=== PATIENT | female | born 1965 | race Caucasian/White ===

== ENCOUNTER 2017-01-12 14:30 | Inpatient (IN) | payer BC ==
[~2017-01-12] VITALS: Ht 165.1 cm; Wt 98.6 kg
--- NOTE | 2017-01-12 16:13 | HP ---
Date/Time of Note Date/Time of Note DATE: 01/12/17 TIME: 16:13 Assessment/Plan VTE Prophylaxis VTE Prophylaxis Intervention: SCD's Assessment/Plan Assessment/Plan 51 yo F with no known pmhx presents with 6 mos of progressive SOB. Work up at OSH ER notable for pulmonary congestion and elevated pro BNP suggestive of acute v acute on chronic systolic HF. PLAN -TTE -high dose lasix strict Is/Os and daily weights weight documented at OSH 260. Pt states her weight is closer to 213 and has not changed recently -check TSH -consider cardiology consult pending results of above for possible ischemia eval cardiac diet DVT prophx HPI/ROS Admit Date/Time Admit Date/Time Jan 12, 2017 at 15:57 Hx of Present Illness CC progressive SOB x 6 mos HPI 51 yo F with no known pmhx presented to OSH ([facility]) ER with c/o progressive BEARDEN/SOB x 6 mos .Pt states symptoms started in June, presented to [facility] ER after a vacation with SOB. Was told she had bronchitis and rx' ed abx and inhaler. BEARDEN/SOB however progressed. Pt requiring more and more pillows to prop herself up in order to sleep, also went from being able bodied to not being able to walk more than a few steps without getting SOB. +occ L sided chest discomfort when she lays on her L side. +nausea/vomiting x 2 weeks, +constipation and diarrhea x 2 weeks. +fatigue. No fevers or chills. No significant weight gain. Reports trace ankle edema. PMH/Family/Social Past Medical History home meds: ativan 0.5 mg qHS PRN insomnia Family History Significant Family History: other (no known fam hx CAD) Social History quit smoking cigarettes 6 mos ago lives in the community with her self employed Exam/Review of Systems Exam Exam nad, sitting up in bed, pleasant EOMI MMM no mrg, rrr lungs with decreased breath sounds bl bases abd soft ntnd trace ankle edema bl no rashes moves exts freely OSH studies EKG: sinus tach (106), low voltage. no gross ST segment derangement DDimer 1.27 CT Angio: no PE, +bl groundglass Abd US: gallbladder nl, 1.5 cm echogenic focus in post seg R liver lobe, likely hemangioma CXR with pulm congestion 6.4>14.6/44.3<127 INR 1.1 Trop neg hcg neg Na 139, K 4,3 gluc 103 Cr 0.7 LDL 105, HDL 35 proBNP 3030 albumin 4.2 UA: no protein Medications Medications Current Medications Ondansetron HCl (Zofran Tab) 4 mg Q6H PRN PO NAUSEA AND/OR VOMITING; Start at 16:30; Status UNV Ondansetron HCl (Zofran Inj) 4 mg Q6H PRN IV NAUSEA AND/OR VOMITING; Start at 16:30; Status UNV Furosemide (Lasix) 40 mg BID IV ; Start 01/12/17 at 21:00; Status UNV Acetaminophen (Tylenol Tab) 650 mg Q6H PRN PO PAIN LEVEL 1-3 OR FEVER; Start at 16:30; Status UNV Acetaminophen/ Hydrocodone Bitart ([place] (5/325)) 1 tab Q6H PRN PO PAIN LEVEL 4 -6; Start 01/12/17 at 16:30; Status UNV Morphine Sulfate (morphine) 2 mg Q4H PRN IV PAIN LEVEL 7-10; Start 01/12/17 at 16:30; Status UNV Docusate Sodium (Colace) 100 mg Q12H PRN PO CONSTIPATION; Start 01/12/17 at 16: 30; Status UNV Magnesium Hydroxide (Milk Of Mag) 30 ml DAILY PRN PO CONSTIPATION; Start at 16:30; Status UNV Bisacodyl (Dulcolax) 5 mg DAILY PRN PO CONSTIPATION; Start 01/12/17 at 16:30; Status UNV Enoxaparin Sodium (Lovenox) 40 mg DAILY SC ; Start 01/13/17 at 09:00; Status UNV CHITO PRICE MD Jan 12, 2017 16:13
[2017-01-12 16:30] VITALS: BP 125/94; PULSE 110; RESP 20
[2017-01-12] MEDS ORDERED: MAGNESIUM HYDROXIDE 30ML CUP PO PRN (16:30)
[2017-01-12] MEDS ORDERED: ONDANSETRON 4 MG INJ IV PRN (16:30)
[2017-01-12] MEDS ORDERED: ONDANSETRON 4 MG TAB PO PRN (16:30)
[2017-01-12] MEDS ORDERED: ACETAMINOPHEN 325 MG TAB PO PRN (16:30)
[2017-01-12] MEDS ORDERED: morphine 2 MG INJ IV PRN (16:30)
[2017-01-12] MEDS ORDERED: BISACODYL (EC) 5 MG TAB PO PRN (16:30)
[2017-01-12] MEDS ORDERED: NACL 0.9% 3 ML SYG IV SCH (16:30)
[2017-01-12] MEDS ORDERED: DOCUSATE SODIUM 100 MG CAP PO PRN (16:30)
[2017-01-12] MEDS ORDERED: HYDROCODONE/APAP (5/325) TAB PO PRN (16:30)
[2017-01-12 16:31] VITALS: PULSE 110
[2017-01-12 17:00] VITALS: Ht 165.1 cm; Wt 98.6 kg
[2017-01-12 18:46] VITALS: BP 130/76; PULSE 109
[2017-01-12] MEDS: FUROSEMIDE 40 MG INJ IV SCH (18:47)
[2017-01-12] MEDS: ALBUTEROL/IPRATROPIUM (NEB) 3 ML AMP HHN PRN ×2 (19:12→23:36)
[2017-01-12 20:07] VITALS: PULSE 100
[2017-01-12 20:15] VITALS: BP 123/84; RESP 20
[2017-01-13] VITALS (12 sets, daily range): BP systolic 101–124; BP diastolic 58–82; PULSE 90–103; RESP 17–20
[2017-01-13] MEDS: ALBUTEROL/IPRATROPIUM (NEB) 3 ML AMP HHN PRN ×2 (04:57→10:41)
[2017-01-13] MEDS: FUROSEMIDE 40 MG INJ IV SCH ×2 (06:07→18:33)
[2017-01-13 08:36] LABS: CALCIUM 10.1 mg/dl (8.4-10.2); CREATININE 0.79 mg/dl (0.44-1.00); MAGNESIUM 1.6 mg/dl (1.7-2.5); POTASSIUM 3.7 mmol/L (3.5-5.1)
[2017-01-13] MEDS: MAGNESIUM OXIDE 400 MG TAB PO SCH (09:32)
[2017-01-13 09:40] LABS: THYROID STIMULATING HORMONE 3.6 MIU/L (0.465-4.680)
[2017-01-13] MEDS: ENOXAPARIN 40 MG/0.4 ML SYG SC SCH (10:55)
--- NOTE | 2017-01-13 13:58 | PN ---
Date/Time of Note Date/Time of Note DATE: 01/13/17 TIME: 13:57 Assessment/Plan VTE Prophylaxis VTE Prophylaxis Intervention: SCD's Lines/Catheters IV Catheter Type (from Nrsg): Saline Lock Assessment/Plan Assessment/Plan 51 yo F with no known pmhx presents with 6 mos of progressive SOB. Work up at OSH ER notable for pulmonary congestion and elevated pro BNP suggestive of acute v acute on chronic systolic HF. PLAN -TTE result pending -high dose lasix strict Is/Os and daily weights Pt states her weight is closer to 213, documented here at 217# this morning -TSH nl -consider cardiology consult pending results of above for possible ischemia eval cardiac diet DVT prophx Subjective 24 Hr Interval Summary Free Text/Dictation Breathing and edema little better. TTE appears to have been performed but read pending Exam/Review of Systems Vital Signs Vitals Vital Signs Date Time Temp Pulse Resp B/P Pulse Ox O2 Delivery O2 Flow Rate FiO2 01/13/17 12:16 97 01/13/17 11:22 98.3 18 113/59 96 01/13/17 10:41 2.0 28 01/13/17 10:41 Nasal Cannula Intake and Output 01/12/17 01/12/17 01/13/17 15:00 23:00 07:00 Intake Total 200 ml Balance 200 ml Exam nad, no mrg lungs still with decrease BS at bl bases but improved from yesterday no mrg abd soft LE edema improved TTE result pending Results Result Diagram: 01/13/17 0724 Results 24 hrs Laboratory Tests Test 01/13/17 07:24 Sodium Level 144 Potassium Level 3.7 Chloride Level 100 Carbon Dioxide Level 26 Anion Gap 22 H Blood Urea Nitrogen 16 Creatinine 0.79 Glucose Level 103 Hemoglobin A1c 5.8 Calcium Level 10.1 Phosphorus Level 6.0 H Magnesium Level 1.6 L Thyroid Stimulating Hormone (TSH) 3.600 Medications Medications Current Medications Ondansetron HCl (Zofran Tab) 4 mg Q6H PRN PO NAUSEA AND/OR VOMITING; Start at 16:30 Ondansetron HCl (Zofran Inj) 4 mg Q6H PRN IV NAUSEA AND/OR VOMITING; Start at 16:30 Acetaminophen (Tylenol Tab) 650 mg Q6H PRN PO PAIN LEVEL 1-3 OR FEVER Last administered on 01/13/17 09:33; Admin Dose 650 MG; Start 01/12/17 at 16:30 Acetaminophen/ Hydrocodone Bitart ([place] (5/325)) 1 tab Q6H PRN PO PAIN LEVEL 4 -6; Start 01/12/17 at 16:30 Morphine Sulfate (morphine) 2 mg Q4H PRN IV PAIN LEVEL 7-10; Start 01/12/17 at 16:30 Docusate Sodium (Colace) 100 mg Q12H PRN PO CONSTIPATION; Start 01/12/17 at 16: 30 Magnesium Hydroxide (Milk Of Mag) 30 ml DAILY PRN PO CONSTIPATION; Start at 16:30 Bisacodyl (Dulcolax) 5 mg DAILY PRN PO CONSTIPATION; Start 01/12/17 at 16:30 Enoxaparin Sodium (Lovenox) 40 mg DAILY SC Last administered on 01/13/17 10:55 ; Admin Dose 40 MG; Start 01/13/17 at 09:00 Magnesium Oxide (Mag-Ox 400) 400 mg DAILY PO Last administered on 01/13/17 09: 32; Admin Dose 400 MG; Start 01/13/17 at 09:00 CHITO PRICE MD Jan 13, 2017 13:58
--- NOTE | 2017-01-13 14:45 | RADRPT ---
Echocardiogram Report Patient Name: LEA SAMANIEGO Gender: Female Date: 1965 Study Date: 13-Jan-2017 Adolescent Specialist: [facility] Location: [address] Ref. Physician: CHITO PRICE Quality: Adequate Procedures: Transthoracic echocardiogram with complete 2D, M-Mode, and doppler examination. Indications: New diagnosis CHF. 2D/M Mode Doppler Measurement Value Normal Ranges Measurement Value Normal Ranges LVIDd 2D 5.8 3.5 - 5.6 cm AV Peak Hitesh 1.3 m/sec LVIDs 2D 5.4 2.1 - 4.1 cm AV Peak PG 7.0 mmHg FS 2D 8.2 % LVOT Peak Hitseh 0.9 m/sec LVPWd 2D 0.9 0.6 - 1.1 cm LVOT Peak PG 3.0 mmHg IVSd 2D 0.9 0.6 - 1.1 cm MV E Peak Hitesh 1.1 m/sec IVS/LVPW 2D 1.0 MV Decel Time 197 msec AoR Diam 2D 3.0 2.0 - 3.7 cm TR Peak Hitesh 2.6 m/sec LA/Ao 2D 1 0 - 1 TR Peak PG 28.0 mmHg EDV 2D 200.0 cm3 RVSP 36.0 mmHg ESV 2D 155.0 cm3 LA Dimen 2D 4.1 2.3 - 4.0 cm Findings Left Ventricle: Normal left ventricular wall thickness. Moderate enlargement of left ventricle cavity. Severe left ventricular systolic dysfunction. Ejection fraction is visually estimated at 20 %. Abnormal Diastolic Function. Right Ventricle: Normal right ventricular size. Normal right ventricular systolic function. Left Atrium: There is moderate enlargement of left atrium. Right Atrium: There is moderate enlargement of right atrium. Mitral Valve: Mild mitral leaflet calcification. Mild mitral annular calcification. Trace mitral regurgitation. Aortic Valve: Normal appearance of the aortic valve. No significant aortic stenosis or insufficiency. Tricuspid Valve: Normal appearance of the tricuspid valve. Estimated peak PA systolic pressure 36 mmHg. There is mild tricuspid regurgitation. Pulmonic Valve: Pulmonic valve not well visualized. There is trace pulmonic regurgitation. Pericardium: Normal pericardium with no significant pericardial effusion. Aorta: Normal aortic root. IVC: Dilated IVC with respiratory collapse consistent with elevated right atrial pressure. Conclusions 1.Normal left ventricular wall thickness. Moderate enlargement of left ventricle cavity. Severe left ventricular systolic dysfunction. Ejection fraction is visually estimated at 20 %. Abnormal Diastolic Function. 2.Normal right ventricular size. Normal right ventricular systolic function. 3.There is moderate enlargement of left atrium. 4.There is moderate enlargement of right atrium. 5.Trace mitral regurgitation. 6.No significant aortic stenosis or insufficiency. 7.Estimated peak PA systolic pressure 36 mmHg. There is mild tricuspid regurgitation. 8.Normal pericardium with no significant pericardial effusion. Electronically Signed By: Mendez Schaeffer 13-Jan-2017 14:44:37 -0700 Patient Name: LEA SAMANIEGO Study Date: 13-Jan-2017 [id number]
--- NOTE | 2017-01-13 18:33 | CONS ---
Date/Time of Note Date/Time of Note DATE: 01/13/17 TIME: 18:22 Assessment/Plan Assessment/Plan Additional Assessment/Plan Acute decompensated systolic congestive heart failure Cardiomyopathy with ejection fraction 20% -Patient with newly diagnosed cardiomyopathy, currently with acute decompensated systolic congestive heart failure. In discussion with patient and , patient with recent travel to [place] in June 2016, upon return, severe illness with fevers and chills, myalgias and GI symptoms. Since then, progressive worsening shortness of breath, chest discomfort and lower extremity edema. Would continue IV diuretic therapy as blood pressure renal function permits, would start TAYLA inhibitor at the current time and uptitrate as blood pressure and renal function permits, will plan to start Coreg in the next 24 hours. Maintain potassium above 4.0 and magnesium above 2.0. Will need ischemic workup in the future. Extensive discussion had with the patient and at bedside regarding diagnosis and plan of care. Consultation Date/Type/Reason Admit Date/Time Jan 12, 2017 at 15:57 Type of Consultation: cv Reason for Consultation Shortness of breath Hx of Present Illness This is a 51-year-old female with no significant past medical history who presents with worsening shortness of breath and lower extremity edema and chest pressure. Symptoms have been worsening over the past few weeks. Patient with symptoms of paroxysmal nocturnal dyspnea, dyspnea with exertion. Chest pressure is intermittent. Patient recently took a trip to [place] in June 2016. When she came back, she tells me she got "very sick". She was having fevers and chills associated with abdominal pain, nausea vomiting and diarrhea. She was put on an antibiotic with improvement in her abdominal symptoms but continued to have her other symptoms. Since then, she has had multiple episodes of shortness of breath, lower extremity edema and chest pressure. She was tried on inhalers with no significant improvement. Given worsening symptoms over the past few days, she went to the emergency room for evaluation and care. Because of insurance reasons, she was transferred to our facility for further evaluation and care. Since starting her on IV Lasix, her symptoms shortness of breath have improved significantly and she has no further chest pressure. Lower extremity edema has also improved. 12 point review of systems was performed with all pertinent positives and negatives mentioned above and all else is negative Past Medical History Medical History: no pertinent history Family History Significant Family History: no pertinent family hx Social History Alcohol Use: other (Drinks heavily at times on the weekends) Smoking Status: Current some day smoker Drug Use: none Other Social History Currently not working Exam/Review of Systems Vital Signs Vitals Vital Signs Date Time Temp Pulse Resp B/P Pulse Ox O2 Delivery O2 Flow Rate FiO2 01/13/17 17:59 2.0 28 01/13/17 16:28 103 01/13/17 15:12 97.5 17 101/62 95 01/13/17 10:41 Nasal Cannula Intake and Output 01/12/17 01/12/17 01/13/17 15:00 23:00 07:00 Intake Total 200 ml Balance 200 ml Exam No apparent distress, no dyspnea with speaking Constitutional: alert, obese, oriented Head: normocephalic Neck: supple Respiratory: other (Coarse breath sounds bilaterally, no wheezing) Cardiovascular: other (S1-S2 heard), regular rate and rhythm, systolic murmur Gastrointestinal: bowel sounds, non-tender, soft Extremities: edema Results Result Diagram: 01/13/17 0724 Results 24 hrs Laboratory Tests Test 01/13/17 07:24 Sodium Level 144 Potassium Level 3.7 Chloride Level 100 Carbon Dioxide Level 26 Anion Gap 22 H Blood Urea Nitrogen 16 Creatinine 0.79 Glucose Level 103 Hemoglobin A1c 5.8 Calcium Level 10.1 Phosphorus Level 6.0 H Magnesium Level 1.6 L Thyroid Stimulating Hormone (TSH) 3.600 Medications Medications Current Medications Ondansetron HCl (Zofran Tab) 4 mg Q6H PRN PO NAUSEA AND/OR VOMITING; Start at 16:30 Ondansetron HCl (Zofran Inj) 4 mg Q6H PRN IV NAUSEA AND/OR VOMITING; Start at 16:30 Acetaminophen (Tylenol Tab) 650 mg Q6H PRN PO PAIN LEVEL 1-3 OR FEVER Last administered on 01/13/17t 09:33; Admin Dose 650 MG; Start 01/12/17 at 16:30 Acetaminophen/ Hydrocodone Bitart ([place] (5/325)) 1 tab Q6H PRN PO PAIN LEVEL 4 -6; Start 01/12/17 at 16:30 Morphine Sulfate (morphine) 2 mg Q4H PRN IV PAIN LEVEL 7-10; Start 01/12/17 at 16:30 Docusate Sodium (Colace) 100 mg Q12H PRN PO CONSTIPATION; Start 01/12/17 at 16: 30 Magnesium Hydroxide (Milk Of Mag) 30 ml DAILY PRN PO CONSTIPATION; Start at 16:30 Bisacodyl (Dulcolax) 5 mg DAILY PRN PO CONSTIPATION; Start 01/12/17 at 16:30 Enoxaparin Sodium (Lovenox) 40 mg DAILY SC Last administered on 01/13/17 10:55 ; Admin Dose 40 MG; Start 01/13/17 at 09:00 Magnesium Oxide (Mag-Ox 400) 400 mg DAILY PO Last administered on 01/13/17 09: 32; Admin Dose 400 MG; Start 01/13/17 at 09:00 Lisinopril 2.5 mg 2.5 mg BID PO ; Start 01/13/17 at 21:00 Magnesium Sulfate/ Sodium Chloride (Magnesium Sulfate/NS) 106 ml @ 35.333 mls/ hr ONCE ONCE IVPB ; Start 01/13/17 at 20:00; Stop 01/13/17 at 22:59 Procedures Procedures ECG from outside facility done 01/12/2017 demonstrates sinus tachycardia at 106 bpm, QRS 82 ms, nonspecific STT wave abnormalities Mendez Schaeffer DO Jan 13, 2017 18:32
[2017-01-13] MEDS ORDERED: ALPRAZOLAM 0.25 MG TAB PO PRN (19:00)
[2017-01-13 19:42] LABS: CREATINE KINASE 27 IU/L (23-200)
[2017-01-13] MEDS ORDERED: MAGNESIUM SULFATE 3 GM in SOD CHLORIDE 0.9% 100 ML IVPB ONE (20:00)
[2017-01-13 20:09] LABS: TROPONIN-I < 0.012 ng/ml (0.00-0.12)
[2017-01-13] MEDS: LISINOPRIL 5 MG TAB PO SCH (21:21)
[2017-01-14] VITALS (12 sets, daily range): BP systolic 119–128; BP diastolic 60–75; PULSE 85–113; RESP 18–20
[2017-01-14] MEDS: FUROSEMIDE 40 MG INJ IV SCH ×2 (06:34→17:15)
[2017-01-14 08:01] LABS: BASOPHIL # 0.1 10^3/ul (0.0-0.1); BASOPHILS % 0.7 % (0.0-2.0); EOSINOPHILS # 0.6 10^3/ul (0.0-0.5); HEMATOCRIT 50.4 % (37.0-47.0); HEMOGLOBIN 16.4 g/dl (12.0-16.0); LYMPHOCYTES # 1.5 10^3/ul (0.8-2.9); LYMPHOCYTES % 20.7 % (15.0-51.0); MEAN CORPUSCULAR HEMOGLOBIN 30.4 pg (29.0-33.0); MEAN CORPUSCULAR HGB CONC 32.5 g/dl (32.0-37.0); MEAN CORPUSCULAR VOLUME 93.5 fl (82.0-101.0); MONOCYTE # 0.5 10^3/ul (0.3-0.9); MONOCYTES % 7.5 % (0.0-11.0); NEUTROPHIL # 4.4 10^3/ul (1.6-7.5); NEUTROPHILS % 62.7 % (39.0-77.0); PLATELET COUNT 222 10^3/UL (140-415); RED BLOOD COUNT 5.39 10^6/ul (4.20-5.40); RED CELL DISTRIBUTION WIDTH 14.5 % (11.5-14.5); WHITE BLOOD COUNT 7.1 10^3/ul (4.8-10.8)
[2017-01-14 08:52] LABS: CALCIUM 10.7 mg/dl (8.4-10.2); CREATININE 0.85 mg/dl (0.44-1.00); POTASSIUM 4.5 mmol/L (3.5-5.1)
[2017-01-14] MEDS: MAGNESIUM OXIDE 400 MG TAB PO SCH (09:34)
[2017-01-14] MEDS: LISINOPRIL 5 MG TAB PO SCH ×2 (09:34→21:14)
[2017-01-14] MEDS: ASPIRIN 81 MG TAB PO SCH (09:34)
[2017-01-14] MEDS: ENOXAPARIN 40 MG/0.4 ML SYG SC SCH (09:45)
--- NOTE | 2017-01-14 16:08 | CONS ---
Date/Time of Note Date/Time of Note DATE: 01/14/17 TIME: 16:04 Assessment/Plan Assessment/Plan Additional Assessment/Plan Acute decompensated systolic congestive heart failure Cardiomyopathy with ejection fraction 20% -Patient tolerating diuretics, would plan on switching to p.o. the next 24 hours. Would start Coreg in the next 24 hours, uptitrate TAYLA inhibitor and Coreg as blood pressure and renal function permits. Maintain potassium above 4.0 and magnesium above 2.0. Consultation Date/Type/Reason Admit Date/Time Jan 12, 2017 at 15:57 Initial Consult Date Type of Consultation: cv 24 HR Interval Summary Free Text/Dictation Shortness of breath continues to improve with increase exercise capacity with no chest discomfort. Denies dizziness. Exam/Review of Systems Vital Signs Vitals Vital Signs Date Time Temp Pulse Resp B/P Pulse Ox O2 Delivery O2 Flow Rate FiO2 01/14/17 15:54 98.2 79 19 128/69 97 01/13/17 23:06 2.0 01/13/17 17:59 28 01/13/17 10:41 Nasal Cannula Intake and Output 01/13/17 01/13/17 01/14/17 15:00 23:00 07:00 Intake Total 850 ml 586 ml Balance 850 ml 586 ml Exam No apparent distress, no dyspnea with speaking Constitutional: alert, obese, oriented Head: normocephalic Neck: supple Respiratory: other (Coarse breath sounds bilaterally, no wheezing) Cardiovascular: other (S1-S2 heard), regular rate and rhythm Gastrointestinal: bowel sounds, non-tender, other (No guarding), soft Extremities: edema Results Result Diagram: 01/14/17 0712 01/14/17 0712 Results 24 hrs Laboratory Tests Test 01/13/17 19:04 01/14/17 07:12 Creatine Kinase 27 Creatine Kinase Index 1.5 Creatinine Kinase MB (Mass) 0.40 Troponin I < 0.012 White Blood Count 7.1 Red Blood Count 5.39 Hemoglobin 16.4 H Hematocrit 50.4 H Mean Corpuscular Volume 93.5 Mean Corpuscular Hemoglobin 30.4 Mean Corpuscular Hemoglobin Concent 32.5 Red Cell Distribution Width 14.5 Platelet Count 222 Mean Platelet Volume 11.0 H Neutrophils % 62.7 Lymphocytes % 20.7 Monocytes % 7.5 Eosinophils % 8.0 H Basophils % 0.7 Nucleated Red Blood Cells % 0.0 Neutrophils # 4.4 Lymphocytes # 1.5 Monocytes # 0.5 Eosinophils # 0.6 H Basophils # 0.1 Nucleated Red Blood Cells # 0.0 Sodium Level 145 H Potassium Level 4.5 Chloride Level 96 L Carbon Dioxide Level 29 Anion Gap 25 H Blood Urea Nitrogen 16 Creatinine 0.85 Glucose Level 103 Calcium Level 10.7 H Magnesium Level 2.4 Medications Medications Current Medications Ondansetron HCl (Zofran Tab) 4 mg Q6H PRN PO NAUSEA AND/OR VOMITING; Start at 16:30 Ondansetron HCl (Zofran Inj) 4 mg Q6H PRN IV NAUSEA AND/OR VOMITING; Start at 16:30 Acetaminophen (Tylenol Tab) 650 mg Q6H PRN PO PAIN LEVEL 1-3 OR FEVER Last administered on 01/13/17 09:33; Admin Dose 650 MG; Start 01/12/17 at 16:30 Acetaminophen/ Hydrocodone Bitart ([place] (5/325)) 1 tab Q6H PRN PO PAIN LEVEL 4 -6; Start 01/12/17 at 16:30 Morphine Sulfate (morphine) 2 mg Q4H PRN IV PAIN LEVEL 7-10; Start 01/12/17 at 16:30 Docusate Sodium (Colace) 100 mg Q12H PRN PO CONSTIPATION; Start 01/12/17 at 16: 30 Magnesium Hydroxide (Milk Of Mag) 30 ml DAILY PRN PO CONSTIPATION; Start at 16:30 Bisacodyl (Dulcolax) 5 mg DAILY PRN PO CONSTIPATION; Start 01/12/17 at 16:30 Enoxaparin Sodium (Lovenox) 40 mg DAILY SC Last administered on 01/14/17 09:45 ; Admin Dose 40 MG; Start 01/13/17 at 09:00 Magnesium Oxide (Mag-Ox 400) 400 mg DAILY PO Last administered on 01/14/17 09: 34; Admin Dose 400 MG; Start 01/13/17 at 09:00 Lisinopril (Zestril) 2.5 mg BID PO Last administered on 01/14/17 09:34; Admin Dose 2.5 MG; Start 01/13/17 at 21:00 Aspirin (Aspirin) 81 mg DAILY PO Last administered on 7/27/17at 09:34; Admin Dose 81 MG; Start 01/14/17 at 09:00 Alprazolam (Xanax) 0.25 mg Q6H PRN PO ANXIETY; Start 01/13/17 at 19:00 Mendez Schaeffer DO Jan 14, 2017 16:08
--- NOTE | 2017-01-14 18:03 | PN ---
Date/Time of Note Date/Time of Note DATE: 01/14/17 TIME: 18:02 Assessment/Plan VTE Prophylaxis VTE Prophylaxis Intervention: SCD's Lines/Catheters IV Catheter Type (from Nrs): Saline Lock Assessment/Plan Assessment/Plan 51 yo F with no known pmhx presents with 6 mos of progressive SOB. TTE here with EF<20%. PLAN -Cardiology following. cont lasix and starting acei/bb as per cardiology -cardiology pondering ischemia eval -RD consult for new CHF lifestyle diet cardiac diet DVT prophx Subjective 24 Hr Interval Summary Free Text/Dictation Pt with lots of questions on behalf of herself and her son regarding the fci prognosis of her newly diagnosed HF states breathing SIGNIFICANTLY improved from admission Exam/Review of Systems Vital Signs Vitals Vital Signs Date Time Temp Pulse Resp B/P Pulse Ox O2 Delivery O2 Flow Rate FiO2 01/14/17 16:15 113 01/14/17 15:54 98.2 19 128/69 97 01/13/17 23:06 2.0 01/13/17 17:59 28 01/13/17 10:41 Nasal Cannula Intake and Output 01/13/17 01/13/17 01/14/17 15:00 23:00 07:00 Intake Total 850 ml 586 ml Balance 850 ml 586 ml Exam nad, sitting up in bed rrr no mrg lungs with bb crackles no mrg pedal edema improved Results Result Diagram: 01/14/17 0712 01/14/17 0712 Results 24 hrs Laboratory Tests Test 01/13/17 19:04 01/14/17 07:12 Creatine Kinase 27 Creatine Kinase Index 1.5 Creatinine Kinase MB (Mass) 0.40 Troponin I < 0.012 White Blood Count 7.1 Red Blood Count 5.39 Hemoglobin 16.4 H Hematocrit 50.4 H Mean Corpuscular Volume 93.5 Mean Corpuscular Hemoglobin 30.4 Mean Corpuscular Hemoglobin Concent 32.5 Red Cell Distribution Width 14.5 Platelet Count 222 Mean Platelet Volume 11.0 H Neutrophils % 62.7 Lymphocytes % 20.7 Monocytes % 7.5 Eosinophils % 8.0 H Basophils % 0.7 Nucleated Red Blood Cells % 0.0 Neutrophils # 4.4 Lymphocytes # 1.5 Monocytes # 0.5 Eosinophils # 0.6 H Basophils # 0.1 Nucleated Red Blood Cells # 0.0 Sodium Level 145 H Potassium Level 4.5 Chloride Level 96 L Carbon Dioxide Level 29 Anion Gap 25 H Blood Urea Nitrogen 16 Creatinine 0.85 Glucose Level 103 Calcium Level 10.7 H Magnesium Level 2.4 Medications Medications Current Medications Ondansetron HCl (Zofran Tab) 4 mg Q6H PRN PO NAUSEA AND/OR VOMITING; Start at 16:30 Ondansetron HCl (Zofran Inj) 4 mg Q6H PRN IV NAUSEA AND/OR VOMITING; Start at 16:30 Acetaminophen (Tylenol Tab) 650 mg Q6H PRN PO PAIN LEVEL 1-3 OR FEVER Last administered on 01/13/17 09:33; Admin Dose 650 MG; Start 01/12/17 at 16:30 Acetaminophen/ Hydrocodone Bitart ([place] (5/325)) 1 tab Q6H PRN PO PAIN LEVEL 4 -6; Start 01/12/17 at 16:30 Morphine Sulfate (morphine) 2 mg Q4H PRN IV PAIN LEVEL 7-10; Start 01/12/17 at 16:30 Docusate Sodium (Colace) 100 mg Q12H PRN PO CONSTIPATION; Start 01/12/17 at 16: 30 Magnesium Hydroxide (Milk Of Mag) 30 ml DAILY PRN PO CONSTIPATION; Start at 16:30 Bisacodyl (Dulcolax) 5 mg DAILY PRN PO CONSTIPATION; Start 01/12/17 at 16:30 Enoxaparin Sodium (Lovenox) 40 mg DAILY SC Last administered on 01/14/17 09:45 ; Admin Dose 40 MG; Start 01/13/17 at 09:00 Magnesium Oxide (Mag-Ox 400) 400 mg DAILY PO Last administered on 01/14/17 09: 34; Admin Dose 400 MG; Start 01/13/17 at 09:00 Aspirin (Aspirin) 81 mg DAILY PO Last administered on 01/14/17 09:34; Admin Dose 81 MG; Start 01/14/17 at 09:00 Alprazolam (Xanax) 0.25 mg Q6H PRN PO ANXIETY Last administered on 01/14/17 17 :15; Admin Dose 0.25 MG; Start 01/13/17 at 19:00 Lisinopril (Zestril) 5 mg BID PO ; Start 01/14/17 at 21:00 Carvedilol (Coreg) 3.125 mg BID PO ; Start 01/15/17 at 06:00 CHITO PRICE MD Jan 14, 2017 18:03
[2017-01-15] VITALS (9 sets, daily range): BP systolic 95–115; BP diastolic 55–74; PULSE 94–103; RESP 18–20
[2017-01-15] MEDS ORDERED: FUROSEMIDE 40 MG TAB PO SCH (06:00)
[2017-01-15 07:55] LABS: MAGNESIUM 2.2 mg/dl (1.7-2.5); PHOSPHORUS 5.6 mg/dl (2.5-4.9)
[2017-01-15 08:31] LABS: CALCIUM 11.1 mg/dl (8.4-10.2); CREATININE 0.97 mg/dl (0.44-1.00); POTASSIUM 4.5 mmol/L (3.5-5.1)
[2017-01-15] MEDS: LISINOPRIL 5 MG TAB PO SCH (09:00)
[2017-01-15] MEDS: ASPIRIN 81 MG TAB PO SCH (09:10)
[2017-01-15] MEDS: MAGNESIUM OXIDE 400 MG TAB PO SCH (09:11)
[2017-01-15] MEDS: ENOXAPARIN 40 MG/0.4 ML SYG SC SCH (09:15)
--- NOTE | 2017-01-15 13:00 | PN ---
Date/Time of Note Date/Time of Note DATE: 01/15/17 TIME: 12:58 Assessment/Plan VTE Prophylaxis VTE Prophylaxis Intervention: SCD's Lines/Catheters IV Catheter Type (from Nrsg): Saline Lock Assessment/Plan Assessment/Plan 51 yo F with no known pmhx presents with 6 mos of progressive SOB. TTE here with EF<20%. PLAN -Cardiology following. -lasix converted to PO yesterday, cont bb at current dose -decrease acei to 2.5 mg q day given hypotension -cardiology pondering ischemia eval -RD consult for new CHF lifestyle diet Ca elevated on ChemP but when adjusted for albumin is nl (10.2) cardiac diet DVT prophx Subjective 24 Hr Interval Summary Free Text/Dictation BP a little low this AM. Exam/Review of Systems Vital Signs Vitals Vital Signs Date Time Temp Pulse Resp B/P Pulse Ox O2 Delivery O2 Flow Rate FiO2 01/15/17 12:22 100 01/15/17 11:22 98.4 20 107/64 97 01/13/17 23:06 2.0 01/13/17 17:59 28 01/13/17 10:41 Nasal Cannula Intake and Output 01/14/17 01/14/17 01/15/17 15:00 23:00 07:00 Intake Total 800 ml 480 ml Balance 800 ml 480 ml Exam nad, sitting up in bed no mrg lungs clear abd soft trace LE edema bed weights 7. 204.7# 7.27: 205# 7.26: 217# Results Result Diagram: 01/14/17 0712 01/15/17 0604 Results 24 hrs Laboratory Tests Test 01/15/17 06:04 Sodium Level 143 Potassium Level 4.5 Chloride Level 94 L Carbon Dioxide Level 30 Anion Gap 24 H Blood Urea Nitrogen 26 H Creatinine 0.97 Glucose Level 90 Calcium Level 11.1 H Phosphorus Level 5.6 H Magnesium Level 2.2 Albumin 5.1 H Medications Medications Current Medications Ondansetron HCl (Zofran Tab) 4 mg Q6H PRN PO NAUSEA AND/OR VOMITING; Start at 16:30 Ondansetron HCl (Zofran Inj) 4 mg Q6H PRN IV NAUSEA AND/OR VOMITING; Start at 16:30 Acetaminophen (Tylenol Tab) 650 mg Q6H PRN PO PAIN LEVEL 1-3 OR FEVER Last administered on 01/13/17 09:33; Admin Dose 650 MG; Start 01/12/17 at 16:30 Acetaminophen/ Hydrocodone Bitart ([employer] (5/325)) 1 tab Q6H PRN PO PAIN LEVEL 4 -6; Start 01/12/17 at 16:30 Morphine Sulfate (morphine) 2 mg Q4H PRN IV PAIN LEVEL 7-10; Start 01/12/17 at 16:30 Docusate Sodium (Colace) 100 mg Q12H PRN PO CONSTIPATION; Start 01/12/17 at 16: 30 Magnesium Hydroxide (Milk Of Mag) 30 ml DAILY PRN PO CONSTIPATION; Start at 16:30 Bisacodyl (Dulcolax) 5 mg DAILY PRN PO CONSTIPATION; Start 01/12/17 at 16:30 Enoxaparin Sodium (Lovenox) 40 mg DAILY SC Last administered on 01/15/17 09:15 ; Admin Dose 40 MG; Start 01/13/17 at 09:00 Magnesium Oxide (Mag-Ox 400) 400 mg DAILY PO Last administered on 01/15/17 09: 11; Admin Dose 400 MG; Start 01/13/17 at 09:00 Aspirin (Aspirin) 81 mg DAILY PO Last administered on 01/15/17 09:10; Admin Dose 81 MG; Start 01/14/17 at 09:00 Alprazolam (Xanax) 0.25 mg Q6H PRN PO ANXIETY Last administered on 01/14/17 17 :15; Admin Dose 0.25 MG; Start 01/13/17 at 19:00 Lisinopril (Zestril) 5 mg BID PO Last administered on 01/14/17 21:14; Admin Dose 5 MG; Start 01/14/17 at 21:00 Carvedilol (Coreg) 3.125 mg BID PO Last administered on 01/15/17 05:22; Admin Dose 3.125 MG; Start 01/15/17 at 06:00 Furosemide (Lasix) 40 mg DAILY@06 PO ; Start 01/16/17 at 06:00 CHITO PRICE MD Jan 15, 2017 13:00
--- NOTE | 2017-01-15 13:56 | CONS ---
Date/Time of Note Date/Time of Note DATE: 01/15/17 TIME: 13:53 Assessment/Plan Assessment/Plan Additional Assessment/Plan Acute decompensated systolic congestive heart failure Newly diagnosed cardiomyopathy with ejection fraction 20% -Patient with lower blood pressure this morning. Agree with decreasing dose of TAYLA inhibitor. Continue Coreg, Lasix 40 mg daily and titrate as needed, aspirin therapy. Outpatient cardiology follow-up. Consultation Date/Type/Reason Admit Date/Time Jan 12, 2017 at 15:57 Type of Consultation: cv 24 HR Interval Summary Free Text/Dictation Patient continues to feel better. Denies chest pain or dizziness and shortness of breath continues to improve. Exam/Review of Systems Vital Signs Vitals Vital Signs Date Time Temp Pulse Resp B/P Pulse Ox O2 Delivery O2 Flow Rate FiO2 01/15/17 12:22 100 01/15/17 11:22 98.4 20 107/64 97 01/13/17 23:06 2.0 01/13/17 17:59 28 01/13/17 10:41 Nasal Cannula Intake and Output 01/14/17 01/14/17 01/15/17 15:00 23:00 07:00 Intake Total 800 ml 480 ml Balance 800 ml 480 ml Exam No apparent distress Constitutional: alert, oriented Head: normocephalic Respiratory: other (Coarse breath sounds bilaterally, no wheezing) Cardiovascular: other (S1-S2 heard), regular rate and rhythm Gastrointestinal: bowel sounds, non-tender, soft Extremities: edema (Trace) Results Result Diagram: 01/14/17 0712 01/15/17 0604 Results 24 hrs Laboratory Tests Test 01/15/17 06:04 Sodium Level 143 Potassium Level 4.5 Chloride Level 94 L Carbon Dioxide Level 30 Anion Gap 24 H Blood Urea Nitrogen 26 H Creatinine 0.97 Glucose Level 90 Calcium Level 11.1 H Phosphorus Level 5.6 H Magnesium Level 2.2 Albumin 5.1 H Medications Medications Current Medications Ondansetron HCl (Zofran Tab) 4 mg Q6H PRN PO NAUSEA AND/OR VOMITING; Start at 16:30 Ondansetron HCl (Zofran Inj) 4 mg Q6H PRN IV NAUSEA AND/OR VOMITING; Start at 16:30 Acetaminophen (Tylenol Tab) 650 mg Q6H PRN PO PAIN LEVEL 1-3 OR FEVER Last administered on 01/13/17 09:33; Admin Dose 650 MG; Start 01/12/17 at 16:30 Acetaminophen/ Hydrocodone Bitart ([place] (5/325)) 1 tab Q6H PRN PO PAIN LEVEL 4 -6; Start 01/12/17 at 16:30 Morphine Sulfate (morphine) 2 mg Q4H PRN IV PAIN LEVEL 7-10; Start 01/12/17 at 16:30 Docusate Sodium (Colace) 100 mg Q12H PRN PO CONSTIPATION; Start 01/12/17 at 16: 30 Magnesium Hydroxide (Milk Of Mag) 30 ml DAILY PRN PO CONSTIPATION; Start at 16:30 Bisacodyl (Dulcolax) 5 mg DAILY PRN PO CONSTIPATION; Start 01/12/17 at 16:30 Enoxaparin Sodium (Lovenox) 40 mg DAILY SC Last administered on 01/15/17 09:15 ; Admin Dose 40 MG; Start 01/13/17 at 09:00 Magnesium Oxide (Mag-Ox 400) 400 mg DAILY PO Last administered on 01/15/17 09: 11; Admin Dose 400 MG; Start 01/13/17 at 09:00 Aspirin (Aspirin) 81 mg DAILY PO Last administered on 01/15/17 09:10; Admin Dose 81 MG; Start 01/14/17 at 09:00 Alprazolam (Xanax) 0.25 mg Q6H PRN PO ANXIETY Last administered on 01/14/17 17 :15; Admin Dose 0.25 MG; Start 01/13/17 at 19:00 Carvedilol (Coreg) 3.125 mg BID PO Last administered on 01/15/17 05:22; Admin Dose 3.125 MG; Start 01/15/17 at 06:00 Furosemide (Lasix) 40 mg DAILY@06 PO ; Start 01/16/17 at 06:00 Lisinopril (Zestril) 2.5 mg DAILY PO ; Start 01/16/17 at 09:00 Mendez Schaeffer DO Jan 15, 2017 13:56
[2017-01-15] MEDS ORDERED: FURO40TA4 PO (15:22)
[2017-01-15] MEDS ORDERED: LISI-313 PO (15:22)
[2017-01-15] MEDS ORDERED: CARV3.1260 PO (15:22)
--- NOTE | 2017-01-15 15:26 | DS ---
Date/Time of Note Date/Time of Note DATE: 01/15/17 TIME: 15:26 Discharge Summary Admission/Discharge Info Admit Date/Time Jan 12, 2017 at 15:57 Discharge Date/Time Discharge Diagnosis acute decompensated systolic heart failure Consults cardiology Procedures . TTE Conclusions 1. Normal left ventricular wall thickness. Moderate enlargement of left ventricle cavity. Severe left ventricular systolic dysfunction. Ejection fraction is visually estimated at 20 %. Abnormal Diastolic Function. 2. Normal right ventricular size. Normal right ventricular systolic function. 3. There is moderate enlargement of left atrium. 4. There is moderate enlargement of right atrium. 5. Trace mitral regurgitation. 6. No significant aortic stenosis or insufficiency. 7. Estimated peak PA systolic pressure 36 mmHg. There is mild tricuspid regurgitation. 8. Normal pericardium with no significant pericardial effusion. bed weights 01.15 204.7# 7.27: 205# 7.: 217# Hx of Present Illness CC progressive SOB x 6 mos HPI 51 yo F with no known pmhx presented to OSH ([facility]) ER with c/o progressive BEARDEN/SOB x 6 mos .Pt states symptoms started in June, presented to [facility] ER after a vacation with SOB. Was told she had bronchitis and rx' ed abx and inhaler. BEARDEN/SOB however progressed. Pt requiring more and more pillows to prop herself up in order to sleep, also went from being able bodied to not being able to walk more than a few steps without getting SOB. +occ L sided chest discomfort when she lays on her L side. +nausea/vomiting x 2 weeks, +constipation and diarrhea x 2 weeks. +fatigue. No fevers or chills. No significant weight gain. Reports trace ankle edema. Hospital Course Pt started on lasix at admission. TTE obtained shortly after admission notable for severely decreased EF. Cardiology consulted. Etio of pt's heart failure elusive. Pt without a hx of drug abuse. Possible she contracted viral myocarditis 6 mos ago on vacation though usually EF recovers after such an acute insult. Regardless, pt started on CHF regimen in the hospital with bb, acei, and dieretic. Pt's SOB wholly resolved and LE significantly improved by date of discharge. She will f/u with cardiology within 2 weeks for further eval and f/u labs Home Meds Active Scripts Furosemide* (Furosemide*) 40 Mg Tablet, 40 MG PO DAILY@06 for 14 Days, #14 TAB Prov:CHITO PRICE MD 01/15/17 Lisinopril* (Lisinopril*) 5 Mg Tablet, 2.5 MG PO DAILY for 14 Days, #14 TAB Prov:CHITO PRICE MD 01/15/17 Carvedilol* (Carvedilol*) 3.125 Mg Tablet, 3.125 MG PO BID for 14 Days, #28 TAB Prov:CHITO PRICE MD 01/15/17 Follow-up Plan Photostat Operator within 2 weeks for BP check, ChemP, further eval Primary Care Provider Not On Staff Doctor Time spent on discharge: > 30 minutes Pending Labs Laboratory Tests Test 01/15/17 06:04 Sodium Level 143mmol/L (135-144) Potassium Level 4.5mmol/L (3.5-5.1) Chloride Level 94mmol/L (97-110) Carbon Dioxide Level 30mmol/L (21-31) Anion Gap 24 (8-16) Blood Urea Nitrogen 26mg/dl (7-20) Creatinine 0.97mg/dl (0.44-1.00) Glucose Level 90mg/dl (70-220) Calcium Level 11.1mg/dl (8.4-10.2) Phosphorus Level 5.6mg/dl (2.5-4.9) Magnesium Level 2.2mg/dl (1.7-2.5) Albumin 5.1g/dl (3.3-4.9) Copies To: CC: Mendez Schaeffer ELLEN MD Jan 15, 2017 15:26
[2017-01-16] MEDS ORDERED: FUROSEMIDE 40 MG TAB PO SCH (06:00)
[2017-01-16] MEDS ORDERED: LISINOPRIL 5 MG TAB PO SCH (09:00)
== END 2017-01-15 16:39 | disposition home or self-care (01) | DRG 292 ==
LOC: TEL 15:57
PROVIDERS: ADMIT Internal Medicine; ATTEND Internal Medicine
DX: I50.21 Acute systolic (congestive) heart failure (principal); I42.9 Cardiomyopathy, unspecified; K76.9 Liver disease, unspecified; G47.00 Insomnia, unspecified; Z87.891 Personal history of nicotine dependence
CPT/HCPCS: 80048; 82040; 82550; 82553; 83036; 83735; 84100; 84443; 84484; 85025; 87081; 93306; 94640; 94664; J1650; J1940; J3475

== ENCOUNTER 2017-03-03 05:39 | Day surgery (SDC) | payer BC ==
[~2017-03-03] VITALS: Ht 167.6 cm; Wt 93.6 kg
[2017-03-03] VITALS (9 sets, daily range): BP systolic 95–111; BP diastolic 56–83; PULSE 62–68; RESP 13–22; Ht 167.6 cm; Wt 93.6 kg
[~2017-03-03 05:39] MED LIST: CARV3.1260 PO; FURO40TA4 PO; LISI-313 PO
[2017-03-03 06:42] LABS: BASOPHILS % 0.5 % (0.0-2.0); EOSINOPHILS # 0.6 10^3/ul (0.0-0.5); EOSINOPHILS % 8.5 % (0.0-7.0); HEMATOCRIT 47.3 % (37.0-47.0); HEMOGLOBIN 15.7 g/dl (12.0-16.0); LYMPHOCYTES # 2.6 10^3/ul (0.8-2.9); LYMPHOCYTES % 39.7 % (15.0-51.0); MEAN CORPUSCULAR HEMOGLOBIN 30.1 pg (29.0-33.0); MEAN CORPUSCULAR HGB CONC 33.2 g/dl (32.0-37.0); MEAN CORPUSCULAR VOLUME 90.8 fl (82.0-101.0); MONOCYTE # 0.5 10^3/ul (0.3-0.9); MONOCYTES % 7.8 % (0.0-11.0); NEUTROPHILS % 43.3 % (39.0-77.0); PLATELET COUNT 193 10^3/UL (140-415); RED BLOOD COUNT 5.21 10^6/ul (4.20-5.40); RED CELL DISTRIBUTION WIDTH 13.1 % (11.5-14.5); WHITE BLOOD COUNT 6.5 10^3/ul (4.8-10.8)
[2017-03-03] MEDS ORDERED: CARV6.2579 PO (06:47)
[2017-03-03] MEDS ORDERED: HEPARIN 1000 UNITS/ML 10 ML INJ ONE (07:01)
[2017-03-03] MEDS ORDERED: VERAPAMIL 5 MG INJ ONE (07:02)
[2017-03-03] MEDS ORDERED: FENTAnyl 50 MCG/ML VIAL ONE (07:02)
[2017-03-03] MEDS ORDERED: NITROGLYCERIN (IC) 100 MCG/ML INJ ONE (07:02)
[2017-03-03] MEDS ORDERED: LIDOCAINE 1% (MDV) 20 ML INJ ONE (07:02)
[2017-03-03] MEDS ORDERED: MIDAZOLAM 1 MG/ML 2 ML INJ ONE (07:02)
[2017-03-03] MEDS ORDERED: HEPARIN 1000 UNITS/NS (A-LINE) 1,000 ML ONE (07:02)
[2017-03-03 07:07] LABS: INR 0.88; PROTIME 11.9 Sec (12.2-14.2); PT RATIO 0.9
[2017-03-03 07:14] LABS: CALCIUM 10.1 mg/dl (8.4-10.2); CREATININE 0.7 mg/dl (0.44-1.00); POTASSIUM 4.1 mmol/L (3.5-5.1)
[2017-03-03] MEDS ORDERED: SOD CHLORIDE 0.9% 1,000 ML IV SCH (07:47)
--- NOTE | 2017-03-03 07:51 | RADRPT ---
PROCEDURE: XR Chest. CLINICAL INDICATION: Preop TECHNIQUE: A single AP view of the chest was obtained. COMPARISON: None. FINDINGS: No focal airspace opacification, pleural effusion or pneumothorax is seen. The cardiomediastinal si lhouette is upper limits of normal in size. The osseous structures are unremarkable. IMPRESSION: Unremarkable chest x-ray. RPTAT: HH .Jodi Baker MD, MD Date Time Electronically viewed and signed by .Jodi Baker MD, on 03/03/2017 07:51 .G/
--- NOTE | 2017-03-03 07:59 | OPR ---
Date/Time of Note Date/Time of Note DATE: 03/03/17 TIME: 07:55 Operative Report Free Text/Dictation DATE OF PROCEDURE: 03/03/2017 GASOLINE PUMP INSTALLER: Abdelrahman Emmanuel MD PROCEDURES PERFORMED: 1. Left heart catheterization. 2. Transradial band applied to left wrist. PREINTERVENTION DIAGNOSIS: 1. Cardiomyopathy EF 20% POSTINTERVENTION DIAGNOSES: 1. Cardiomyopathy, non-ischemic EF 20% SEDATION: Conscious sedation with fentanyl 50 mcg IV and Versed 1 mg IV. DESCRIPTION OF PROCEDURE: The patient placed on manager cardiac cath, pulse oximetry and supplemental oxygen as necessary. The left writs was prepped and draped in a sterile fashion and infiltrated with 1% lidocaine. Via the Seldinger technique, the left radial artery was accessed. A 5-Divehi sheath was inserted and through this the right coronary catheter and left coronary catheter and pigtail were advanced into the right coronary artery and left coronary artery and the left ventricle. Placement confirmed by fluoroscopy and hemodynamics. CATHETERIZATION FINDINGS: 1. Left main: No significant disease. 2. LAD: Large caliber vessel with no significant disease. 3. Circumflex: Medium caliber vessel with no significant disease. 4. Obtuse marginal: Medium caliber vessel with no significant disease. 5. RCA: Large dominant vessel with no significant disease HEMODYNAMICS: LVEDP 12. No significant aortic valve gradient on pigtail pullback. TOTAL CONTRAST: 25cc FLUOROSCOPY TIME: 1.9 minutes. COMPLICATIONS: None. FINAL RESULTS: No significant coronary artery disease. Non-ischemic cardiomyopathy EF 20% RECOMMENDATIONS: 1. Aggressive Medical Therapy 2. Discharge home today 3. Follow up Dr. Emmanuel 1 week. ABDELRAHMAN EMMANUEL Mar 03, 2017 07:58
--- NOTE | 2017-03-04 11:12 | RADRPT ---
Vent Rate: 83 bpm RR Interval: 0 msec TN Interval: 180 msec QRS Duration: 86 msec QT Interval: 420 msec QTC Interval: 493 msec P-R-T [place]: 24 - -26 - 23 degrees Normal sinus rhythm Low voltage QRS Cannot rule out Anterior infarct , age undetermined Abnormal ECG Electronically Signed By: Gen Liriano [id number]
== END 2017-03-03 09:55 | disposition home or self-care (01) ==
LOC: SDS 05:39 → CCL 05:43 → SDS 09:55
PROVIDERS: ATTEND Internal Medicine
DX: I42.9 Cardiomyopathy, unspecified (principal)
CPT/HCPCS: 71010; 80048; 85025; 85610; 93005; 93458; C1887; J1644; J2250; J3010; Z7610

== ENCOUNTER → 2017-05-04 | Outpatient (CLI) | payer BC ==
[~2017-05-04] MED LIST changes: -CARV3.1260 PO; +CARV6.2579 PO
== END | disposition home or self-care (01) ==
LOC: CRE 12:37
PROVIDERS: ATTEND Internal Medicine
DX: I50.20 Unspecified systolic (congestive) heart failure (principal)
CPT/HCPCS: 93797